=== PATIENT | female | born 1960 | race Caucasian/White ===

== ENCOUNTER 2019-07-23 06:53 | Day surgery (SDC) | payer MEDICAID ==
[2019-07-23] MEDS ORDERED: Dextrose 5%-Lactated Ringers 1,000 ML IV SCH ×2 (08:15→10:00)
[2019-07-23] MEDS ORDERED: Midazolam 1 MG/ML 2 ML SDV ONE (08:28)
[2019-07-23] MEDS ORDERED: fentaNYL 100 MCG/2 ML SDV ONE (08:28)
[2019-07-23] MEDS ORDERED: Propofol 200 MG/20 ML SDV ONE (08:28)
[2019-07-23] MEDS ORDERED: Glycopyrrolate 0.2 MG/ML 2 ML SDV IVPUSH ONE ×2 (10:00)
--- NOTE | 2019-07-23 10:25 | CRLNM ---
HISTORY: 58-year-old female. Right upper quadrant abdominal pain. Lap band surgery approximately 10 years ago. History of gallbladder sludge. TECHNIQUE: 5.25 millicuries of technetium-99m mebrofenin was injected intravenously. Images of the liver, gallbladder and abdomen were obtained in the anterior projection for 60 minutes. 1.83 mcg CCK was then administered intravenously and imaging was continued for an additional 30 minutes. FINDINGS: There is good uptake of activity by the hepatocytes. There is visualization of the biliary tree, gallbladder and small bowel. In response to CCK administration, there is a normal gallbladder ejection fraction of 53 percent by 30 minutes. The patient complained of right upper quadrant abdominal pain and nausea during the CCK infusion. The patient stated that this was similar to her presenting symptoms. IMPRESSION: 1. There is no evidence of acute or chronic cholecystitis. 2. Normal gallbladder ejection fraction of 53 percent. Dictated by Anthony Woodard MD @ Jul 23 2019 10:22AM Signed by Dr. Anthony Woodard @ Jul 23 2019 10:24AM
--- NOTE | 2019-07-23 23:47 | OR ---
DATE OF PROCEDURE: 07/23/2019 SURGEON: Avtar Lopez MD PREOPERATIVE DIAGNOSIS: Progressive intolerance to laparoscopic adjustable gastric band. POSTOPERATIVE DIAGNOSES: 1. Progressive intolerance to laparoscopic adjustable gastric band associated with marked dilation of esophagus above the laparoscopic band with severe gastroesophageal reflux disease. 2. Moderate-sized paraesophageal diaphragmatic hernia. 3. Mild antral gastritis. OPERATIVE PROCEDURE: Esophagogastroduodenoscopy with biopsies of antrum for CLOtest. ANESTHESIA: IV sedation. INDICATION FOR PROCEDURE: This is a 58-year-old female presenting with progressive intolerance to laparoscopic adjustable gastric band in preparation for having it removed. The patient will undergo an upper endoscopy in bad status to rule out problems such as erosions and such. The potential risks including bleeding and perforation were discussed, and the patient wishes to proceed. DETAILS OF PROCEDURE: The patient was taken to the operating room and placed in the left lateral decubitus position. IV sedation was administered, after which the upper GI endoscope was passed orally through the esophagus into the stomach with retroflexion view of the fundus, thereafter through the pyloric channel and into the proximal duodenum. The patient was noted to have a normal hypopharynx, larynx, upper esophageal sphincter, and esophageal body, particularly more distally. The esophagus being quite dilated and distal 3rd was quite excoriated and associated with some retained bile and other fluid at this time. There was no mechanical obstruction to the imprint of the band, so this would appear to be esophageal dilation, a phenomenon above the band system that we often see. The patient did have some motion of the entire area suggestive of some degree of a diaphragmatic hernia as well. The remainder of the stomach was notable for some mild patchy antral gastritis, otherwise the pyloric channel and duodenum were unremarkable. Biopsies were obtained from the antrum and sent for CLOtest for H. pylori. Minimal bleeding from biopsy sites was seen. Procedure was then concluded. The patient was then taken to the recovery room in satisfactory condition. Avtar Lopez MD /[id number]
== END 2019-07-23 13:53 | disposition home or self-care (01) ==
LOC: JP.SDS 06:53
PROVIDERS: ATTEND Surgery
DX: K95.09 Other complications of gastric band procedure (principal); K21.9 Gastro-esophageal reflux disease without esophagitis; K22.8 Other specified diseases of esophagus; K44.9 Diaphragmatic hernia without obstruction or gangrene; K29.70 Gastritis, unspecified, without bleeding; E78.5 Hyperlipidemia, unspecified; F32.9 Major depressive disorder, single episode, unspecified; F41.9 Anxiety disorder, unspecified; E66.01 Morbid (severe) obesity due to excess calories; Z68.36 Body mass index [BMI] 36.0-36.9, adult
CPT/HCPCS: 43239; 78227; 87081; J2250; J2704; J3010; J3490; J7042

== ENCOUNTER 2019-09-03 07:43 | Day surgery (SDC) | payer MEDICAID, OTHER ==
[~2019-09-03 07:43] MED LIST: Bupivacaine 0.5%/EPINEPHrine 1:200,000 50 ML MDV ONE
[2019-09-03] MEDS: cefOXitin 2 GM in Sodium Chloride 0.9% 50 ML IV ONE ×2 (08:17→10:05)
[2019-09-03] MEDS ORDERED: Rocuronium 50 MG/5 ML Vial ONE (08:39)
[2019-09-03] MEDS ORDERED: Dexamethasone 4 MG/ML SDV ONE (08:39)
[2019-09-03] MEDS ORDERED: Neostigmine Methylsulfate 1 MG/ML 5 ML Syringe ONE (08:39)
[2019-09-03] MEDS ORDERED: Glycopyrrolate 0.2 MG/ML 5 ML MDV ONE (08:39)
[2019-09-03] MEDS ORDERED: Succinylcholine 200 MG/10 ML MDV ONE (08:39)
[2019-09-03] MEDS ORDERED: Propofol 200 MG/20 ML SDV ONE (08:39)
[2019-09-03] MEDS ORDERED: Ondansetron 4 MG/2 ML SDV ONE (08:39)
[2019-09-03] MEDS ORDERED: fentaNYL 250 MCG/5 ML SDV ONE ×2 (08:42→10:30)
[2019-09-03] MEDS ORDERED: Acetaminophen 500 MG Tab PO ONE (08:45)
[2019-09-03] MEDS ORDERED: Scopolamine 1.5 MG Transdermal Patch TOP SCH (09:00)
[2019-09-03] MEDS ORDERED: Midazolam 1 MG/ML 2 ML SDV ONE (09:02)
[2019-09-03] MEDS ORDERED: Dextrose 5%-Lactated Ringers 1,000 ML IV SCH (09:30)
[2019-09-03] MEDS ORDERED: Ketamine 50 MG in Sodium Chloride 0.9% 49.5 ML IV SCH (10:15)
[2019-09-03] MEDS ORDERED: Lidocaine 0.4%/D5W 2 GM/500 ML BAG IV SCH (10:15)
[2019-09-03] MEDS ORDERED: Ketamine 500 MG/5 ML MDV IV SCH (10:15)
[2019-09-03] MEDS ORDERED: Lidocaine 2% 100 MG/5 ML Syringe IVPUSH SCH (10:15)
[2019-09-03] MEDS ORDERED: hydrOXYzine HCl 100 MG/2 ML SDV IM ONE (11:58)
[2019-09-03] MEDS ORDERED: HYDROmorphone 1 MG/ML Syringe IV PRN (12:42)
[2019-09-03] MEDS ORDERED: Ondansetron 4 MG/2 ML SDV IVPUSH PRN (12:42)
[2019-09-03] MEDS ORDERED: Acetaminophen/HYDROcodone 325-5 MG Tab PO PRN (12:42)
[2019-09-03] MEDS ORDERED: LORazepam 0.5 MG Tab PO PRN (12:51)
[2019-09-03] MEDS ORDERED: Pantoprazole 40 MG Vial IVPUSH SCH (14:00)
[2019-09-03] MEDS: HYDROmorphone 0.5 MG/0.5 ML Syringe IVPUSH PRN ×2 (14:11→16:48)
[2019-09-03] MEDS: VERIFY SCOP PATCH TOP SCH (14:15)
[2019-09-03] MEDS ORDERED: Warfarin 5 MG Tab PO ONE (16:00)
[2019-09-03] MEDS: cefOXitin 2 GM in Sodium Chloride 0.9% 50 ML IV SCH ×2 (16:11→21:47)
[2019-09-03] MEDS: Dextrose 5%-Lactated Ringers 1,000 ML IV SCH ×2 (16:14→23:57)
[2019-09-03] MEDS ORDERED: Latanoprost 0.005% Ophth Soln 2.5 ML Bottle EYEBOTH SCH (21:00)
[2019-09-04] MEDS ORDERED: Acetaminophen 325 MG Tab PO PRN (00:12)
[2019-09-04] MEDS: cefOXitin 2 GM in Sodium Chloride 0.9% 50 ML IV SCH ×2 (04:19→09:12)
[2019-09-04] MEDS ORDERED: HYDROmorphone 2 MG Tab PO PRN (07:40)
[2019-09-04] MEDS ORDERED: Metoclopramide 10 MG Tab PO PRN (07:44)
[2019-09-04] MEDS ORDERED: Ketorolac 60 MG/2 ML SDV IM ONE (08:15)
[2019-09-04] MEDS: Warfarin 5 MG Tab PO ONE ×2 (08:40→09:47)
[2019-09-04] MEDS ORDERED: Cetirizine 10 MG Tab PO SCH (09:00)
[2019-09-04] MEDS ORDERED: Vilazodone 20 MG Tab PO SCH (09:00)
[2019-09-04] MEDS: VERIFY SCOP PATCH TOP SCH (09:47)
--- NOTE | 2019-09-04 14:00 | DISCH ---
ADMISSION DIAGNOSES: Intolerance to laparoscopic adjustable gastric band and biliary dyskinesia, history of deep vein thrombosis and pulmonary embolism, depression, anxiety, hyperlipidemia, BMI 34. DISCHARGE DIAGNOSIS: Diagnostic laparoscopy with: 1. Removal of laparoscopic gastric band system. 2. Cholecystectomy. 3. Partial gastrectomy for intolerance to laparoscopic gastric band, deserosalized segment of the stomach, status post takedown of band, and biliary dyskinesia. Date of surgery, 09/03/2019. Surgeon, Avtar Lopez MD. HISTORY: Carmencita Kirkpatrick is a 59-year-old female who had intolerance to the laparoscopic gastric band and she had biliary dyskinesia. After preoperative evaluation and discussion of possible risks and possible complications, she wished to proceed with surgical procedure. HOSPITAL COURSE: Carmencita had her surgery on 09/03/2019. She had no operative complications and was able to be discharged on 09/04/2019. PHYSICAL EXAMINATION: GENERAL: Carmencita is a pleasant 59-year-old female. VITAL SIGNS: Height is 5 feet 4 inches, weight is 199 pounds. TPR is 98.2, 80, 16. Blood pressure 130/96. HEENT: Negative. NECK: Supple. HEART: Regular rate and rhythm. LUNGS: Clear. ABDOMEN: Dressings dry and intact. Abdominal binder is on. EXTREMITIES: Without peripheral edema. DISPOSITION: Discharged to home. CONDITION: Stable and improving. FOLLOWUP: Followup appointment with Zoë Farmer PA-C, on 09/14/2019 at 11 a.m. HOME MEDICATIONS: Dilaudid 2 mg p.o. q.4 hours p.r.n. pain #42. She took 10 mg of Coumadin prior to discharge, to resume her normal Coumadin regimen tomorrow. Viibryd 20 mg daily, Pravachol 40 mg at bedtime, Protonix 40 mg daily, resume multivitamin 1 tab daily, levothyroxine 137 mcg before breakfast, latanoprost (Xalatan) 0.005% ophthalmic solution 1 drop daily, lorazepam 0.5 mg daily p.r.n., Flonase 2 sprays daily, zyrtec 10 mg daily, Tylenol 650 mg as directed. Before discharge, Carmencita felt like she was getting migraine headache. Toradol 60 mg IM was given, and she also was prescribed thigh-high TOYIN stockings to wear for 2 weeks. DIET: Step 2 gastric bypass diet with no cereal for 2 weeks. Drink 8 to 10 glasses of water a day. ACTIVITY: No lifting greater than 10 pounds for 2 weeks. OTHER ACTIVITY: Walk 6 times daily inside your home. Driving: Do not drive for 1 week and while on pain medication. Shower/bathing: May shower. Wound Incision Care: Keep operative site clean and dry. Wear abdominal binder for 2 weeks and then as tolerated. Notify provider if any fever, increased pain, swelling, redness, nausea, or vomiting. OTHER INSTRUCTIONS: 1. Use incentive spirometer 10 times every hour while awake for 1 week. 2. Wear thigh-high TOYIN hose bilaterally for 2 weeks and then as desired. 3. On the way home, walk 10 minutes every hour, in the car to avoid blood clots. 4. Get your PT and INR checked on Friday and call Surgery Department at [phone] with results.
[2019-09-04] MEDS ORDERED: Pantoprazole 40 MG Tab.CR PO SCH (16:30)
--- NOTE | 2019-09-13 09:51 | OR ---
DATE OF PROCEDURE: 09/03/2019 SURGEON: Avtar Lopez MD PREOPERATIVE DIAGNOSES: 1. Intolerance to laparoscopic adjustable gastric band. 2. Biliary dyskinesia. POSTOPERATIVE DIAGNOSES: 1. Intolerance to laparoscopic adjustable gastric band. 2. Deserosalized segment of stomach, status post takedown of the band. 3. Biliary dyskinesia. OPERATIVE PROCEDURE: Diagnostic laparoscopy with: 1. Removal of laparoscopic adjustable gastric band system (34948). 2. Cholecystectomy (12249). 3. Partial gastrectomy (44470). ANESTHESIA: General. SHELL SORTER: Zoë Farmer PA-C. INDICATIONS FOR PROCEDURE: This is a 59-year-old status post laparoscopic adjustable gastric band placement in 2006, in [place]. She presents now with ongoing intolerance of the band, as well as recurrent episodes of biliary colic with CCK stimulated scan showing an area of biliary dyskinesia. Plan is to proceed with a diagnostic laparoscopy, laparotomy if necessary, removal of the band system, along with cholecystectomy. Potential risks of the procedure including bleeding, infection, injury to underlying viscera, problems with persistent symptoms following the cholecystectomy, possible injury to the common bile duct during the course of the cholecystectomy were all reviewed, and the patient wishes to proceed. DETAILS OF PROCEDURE: The patient was taken to the operating room, and after general endotracheal anesthesia was induced, placed in a lithotomy position and the abdomen prepped and draped. At 15 cm inferior and 5 cm left of the xiphoid process, a transverse incision was made and the peritoneal cavity entered under direct vision with an Optiview trocar, inflated to 15 mmHg pressure with CO2. Laparoscope was then reinserted. No underlying trocar insertion site injuries were seen. Bilateral subcostal transversus abdominis plane blocks were then placed, and eventually five additional trocars were placed across the upper and mid abdomen. Additionally, the liver was retracted anteriorly, and some adhesions to the area around the band and the liver were taken down with Harmonic Scalpel. The point where the band was encircled by the stomach being sutured up over it was then divided, as well as some additional fibrous attachments to the band. Once these were all divided, the band was also divided then with scissors and removed from the area around the stomach where it had been located. The port tubing was divided and the band was then disconnected and removed from the left subcostal trocar site. Attention was taken to the cholecystectomy. The gallbladder was then retracted anterolaterally. The patient was noted to have a somewhat thick-walled appearing gallbladder, along with some omental adhesions consistent with chronic cholecystitis. The adhesions were taken down with Harmonic scalpel and the dissection continued onto the gallbladder/cystic duct junction. Once that area was well- delineated, as was the adjacent cystic artery, both structures were clipped 3 times proximally, once distally, and the gallbladder was then divided away from the liver bed using Harmonic scalpel and delivered through the epigastric trocar site. Inspection of the gallbladder showed some fine sludge within it, along with a pattern of cholesterolosis involving the gallbladder mucosa. The area of dissection was then inspected. The patient was noted to have some area of deserosalization of the stomach where it had been taken down over the band. This area was then resected with CAIN purple loads and specimen delivered from the field. No further problems were noted. Drain was not felt to be necessary. Trocars were then sequentially removed. The fascia at the trocar sites was closed with 0 Vicryl stitch and the skin with 4- 0 Vicryl skin stitch. Attention was then taken to the port site, which was located in the left lower quadrant. The previously used incision was then reused and carried down through the skin and subcutaneous tissue, and the port was then dissected free from the surrounding soft tissue attachments and delivered from the field. The entire length of the port tubing was confirmed to have been removed at that point, and this incision was then closed with some 3- 0 and 4-0 Vicryl stitch deep and a 4-0 Vicryl skin stitch as well. The patient was taken to the recovery room in satisfactory condition. There were no evident complications. Avtar Lopez MD /[id number]
== END 2019-09-04 11:00 | disposition home or self-care (01) ==
LOC: JP.SDS 07:43 → JP.MS 11:45 → JP.SDS 09-04 11:00
PROVIDERS: ATTEND Surgery
DX: K81.1 Chronic cholecystitis (principal); K66.0 Peritoneal adhesions (postprocedural) (postinfection); K95.09 Other complications of gastric band procedure; E78.00 Pure hypercholesterolemia, unspecified; E06.3 Autoimmune thyroiditis; E03.8 Other specified hypothyroidism; Z88.8 Allergy status to other drugs, medicaments and biological substances; Z88.5 Allergy status to narcotic agent; Z91.09 Other allergy status, other than to drugs and biological substances; Z79.01 Long term (current) use of anticoagulants; Z79.51 Long term (current) use of inhaled steroids; Z79.899 Other long term (current) drug therapy
CPT/HCPCS: 36415; 43774; 47562; 82247; 84075; 85027; 85610; 88300; 88304; 88307; 94762; A9270; C9113; J0171; J0330; J0694; J1100; J1170; J1885; J2001; J2250; J2405; J2704; J2710; J2795; J3010; J3410; J3490; J7042; J7050